=== PATIENT | female | born 1965 | race Caucasian/White ===

== ENCOUNTER → 2023-05-24 | Outpatient (CLI) | payer OTHER, SELFPAY ==
--- OUTSIDE RECORDS SUMMARY | 2023-05-24 20:21 | XMS RPT_ITS | CCD ---
Author Name Unknown Address [address] [place] [address] Organization [facility] Care Team Providers Care Nautical Instrument Mechanic Name Role Phone THEE GIORDANO. Unavailable Unavailable THEE GIORDANO Unavailable Unavailable THEE GIORDANO Unavailable Unavailable THEE GIORDANO DO Primary Care Physician Prince Monsivais Attending Unavailable Thee Giordano Primary Care Unavailable PROVIDER, UNKNOWN Referring Unavailable Thee Giordano Primary Care Unavailable PROVIDER, UNKNOWN Referring Unavailable Prince Monsivais Attending Unavailable Unavailable Primary Care Provider Unavailabl e THEE GIORDNAO DO Primary Care Unavailable THEE GIORDANO DO Attending Unavailable THEE GIORDANO DO Primary Care Unavailable THEE GIORDANO DO Attending Unavailable EL MAGUIRE Attending Unavailable THEE GIORDANO DO Primary Care Unavailable THEE GIORDANO DO Primary Care Unavailable THEE GIORDANO DO Attending Unavailable Medications Current Medications Medication Drug Class(es) Dates Sig (Normalized) Sig (Original) acetaminophen 500 mg oral tablet (2 sources) Start: 12-02-2021 End: 12-12-2021 take 1 tablet by mouth four times daily as needed for pain acetaminophen (TYLENOL) 500 MG tablet Take 1 tablet by mouth 4 times daily as needed for Pain 40 tablet 0 12/02/2021 12/12/2021 Active Completed/Discontinued Medications Medication Drug Class(es) Dates Sig (Normalized) Sig (Original) [id number] 200 actuat albuterol 0.09 mg/actuat metered dose inhaler (3 sources) beta2-Adrenergic Agonist Start: 02-16-2021 End: 03-18-2021 take 2 puff(s) by inhalation every four hours as needed for wheezing ProAir HFA MDI (90 mcg/inh) inhalation aerosol 2 puff(s), Inhalation, q4h, PRN as needed for wheezing, # 8 gram(s), 0 Refill(s), Pharmacy: [facility] 157.5, cm, 02/16/21 14:56:00 EST, Height, kg, 02/16/21 14:56:00 EST, Dosing Weight Start Date: 02/16/21 Stop Date: 03/18/21 Status: Ordered Problems Active Problems Problem Classification Problem Date Documented Date Episodic/Chronic Anxiety disorders (9 sources) Generalized anxiety disorder; Translations: [Generalized anxiety disorder] Onset: 12-26-2020 05-07-2020 Chronic Bacterial infection; unspecified site (1 source) Bacteremia; Translations: [Bacteremia] Onset: 12-30-2020 Episodic Cancer of uterus (5 sources) Malignant neoplasm of endometrium; 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 ] Onset: 12-02-2021 Chronic Diabetes mellitus with complications (3 sources) Hyperglycemia due to type 2 diabetes mellitus; Translations: [Type 2 diabetes mellitus with hyperglycemia] Onset: 12-26-2020 Chronic Diabetes mellitus without complication (10 sources) Type 2 diabetes mellitus; Translations: [Type 2 diabetes mellitus without complications] Onset: 12-02-2021 08-28-2020 Chronic Disorders of lipid metabolism (5 sources) Mixed hyperlipidemia 03-04-2021 Chronic Essential hypertension (11 sources) Hypertensive disorder; Translations: [Essential hypertension] Onset: 12-26-2020 08-28-2020 Chronic Fluid and electrolyte disorders (2 sources) Hypo-osmolality and or hyponatremia; Translations: [Hypo-osmolality and hyponatremia] Onset: 12-26-2020 Episodic Heart valve disorders (9 sources) Mitral valve prolapse; Translations: [Mitral valve disorder] Onset: 12-26-2020 05-07-2020 Chronic Malaise and fatigue (8 sources) Fatigue 12-13-2019 Episodic Other aftercare (2 sources) 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; Translations: [prison (current) use of oral hypoglycemic drugs] Onset: 12-02-2021 Episodic Other female genital disorders (1 source) Abnormal uterine bleeding 11-08-2021 Chronic Other inflammatory condition of skin (8 sources) Psoriasis 07-16-2018 Chronic Other nervous system disorders (2 sources) Postoperative pain ; Translations: [Other acute postprocedural pain] Onset: 12-02-2021 Episodic Other nutritional; endocrine; and metabolic disorders (8 sources) Obese class II 05-07-2020 Chronic Other nutritional; endocrine; and metabolic disorders (1 source) Obesity; Translations: [Obesity, unspecified] Onset: 12-26-2020 Chronic Other upper respiratory disease (8 sources) Allergic rhinitis 02-15-2019 Chronic Pneumonia (except that caused by tuberculosis or sexually transmitted disease) (6 sources) Pneumonia (except that caused by tuberculosis or sexually transmitted disease) 01-05-2021 Respiratory failure; insufficiency; arrest (adult) (6 sources) Dependence on supplemental oxygen 01-05-2021 Chronic Sprains and strains (1 source) Strain of neck muscle 03-24-2022 Episodic Thyroid disorders (10 sources) Hypothyroidism; Translations: [Hypothyroidism, unspecified] Onset: 10-06-2022 08-28-2020 Chronic Unclassified (1 source) Unknown / UNK(Unknown) Onset: 09-20-2016 Unclassified (14 sources) Patient encounter status 10-17-2019 Unclassified (1 source) Cough, unspecified; Translations: [Cough, unspecified] Onset: 03-10-2023 Past or Other Problems Problem Classification Problem Date Documented Da te Episodic/Chronic Immunizations and screening for infectious disease (2 sources) Encounter for screening for other viral diseases; Translations: [Encounter for screening for other viral diseases] Onset: 10-06-2022 Episodic Unclassified (1 source) SCREENING Onset: 09-20-2016 Unclassified (1 source) Cough, unspecified; Translations: [Cough, unspecified] Onset: 03-10-2023 Viral infection (2 sources) Disease caused by 2019-nCoV; Translations: [COVID-19] Onset: 12-26-2020 Results Test Name Value Interpretation Reference Range Facil ity Vital Signs Date Time Vital Sign Value Performing Clinician Faci lity 12-02-2021 15:15-0400 Diastolic blood pressure 87 mm[Hg] Prince Monsivais MD Work Phone: [facility] 12-02-2021 15:15-0400 Heart rate 72 /min Prince Monsivais MD Work Phone: [facility] 12-02-2021 15:15-0400 Respiratory rate 17 /min Prince Monsivais MD Work Phone: [facility] 12-02-2021 15:15-0400 SaO2% (BldA) [Mass fraction] 93 % Prince Monsivais MD Work Phone: [facility] 12-02-2021 15:15-0400 Systolic blood pressure 152 mm[Hg] Prince Monsivais MD Work Phone: [facility] 12-02-2021 13:34-0400 Body temperature 97 [degF] Prince Monsivais MD Work Phone: [facility] 12-02-2021 08:38-0400 Body height 157.5 cm Prince Monsivais MD Work Phone: [facility] 12-02-2021 08:38-0400 Body mass index (BMI) [Ratio] 36.03 kg/m2 Prince Monsivais MD Work Phone: [facility] 12-02-2021 08:38-0400 Body weight 89.36 kg Prince Monsivais MD Work Phone: [facility] 11-29-2021 09:10-0400 Body height 157.5 cm Prince Monsivais MD Work Phone: [facility] 11-29-2021 09:10-0400 Body mass index (BMI) [Ratio] 36.03 kg/m2 Prince Monsivais MD Work Phone: [facility] 11-29-2021 09:10-0400 Body weight 89.36 kg Prince Monsivais MD Work Phone: [facility] 10-29-2021 07:58-0400 Body height 157.5 cm EL MAGUIRE MD [facility] 10-29-2021 07:58-0400 Body weight 89.5 kg EL MAGUIRE MD [facility] 10-29-2021 07:58-0400 Body weight 36.08 kg/m2 EL MAGUIRE MD [facility] 10-29-2021 07:58-0400 diastolic 70 mm[Hg] EL MAGUIRE MD [facility] 10-29-2021 07:58-0400 Heart rate 70 /min EL MAGUIRE MD [facility] 10-29-2021 07:58-0400 systolic 110 mm[Hg] EL MAGUIRE MD [facility] 02-18-2021 08:51-0500 Body height 88 cm SERGIO AALIYAHKA DO [facility] 02-18-2021 08:51-0500 Body temperature 98.24 [degF] SERGIO DURESKA DO [facility] 02-18-2021 08:51-0500 Diastolic blood pressure 81 mm[Hg] SERGIO MATAESKA DO [facility] 02-18-2021 08:51-0500 Heart rate 75 /min SERGIO DURESKA DO [facility] 02-18-2021 08:51-0500 Respiratory rate 16 /min SERGIO ESPERANZAESKA DO [facility] 02-18-2021 08:51-0500 Systolic blood pressure 128 mm[Hg] SERGIO DURESKA DO [facility] 12-31-2020 11:09-0400 Body temperature 97.88 [degF] AUDI METZ APRN-MESS ATTENDANT [facility] 12-31-2020 11:09-0400 Diastolic blood pressure 64 mm[Hg] AUDI RIZZARDI HEAD OF QUALITY-MESS ATTENDANT [facility] 12-31-2020 11:09-0400 Heart rate 64 /min AUDI RIZZARDI HEAD OF QUALITY-MESS ATTENDANT [facility] 12-31-2020 11:09-0400 Mean blood pressure 85 mm[Hg] AUDI RIZZARDI HEAD OF QUALITY-MESS ATTENDANT [facility] 12-31-2020 11:09-0400 Reason For Taking VItal Signs AUDI RIZZARDI HEAD OF QUALITY-MESS ATTENDANT [facility] 12-31-2020 11:09-0400 Respiratory rate 20 /min AUDI RIZZARDI HEAD OF QUALITY-MESS ATTENDANT [facility] 12-31-2020 11:09-0400 Systolic blood pressure 127 mm[Hg] AUDI RIZZARDI HEAD OF QUALITY-MESS ATTENDANT [facility] 12-31-2020 08:58-0400 Heart rate 72 /min AUDI RIZZARDI HEAD OF QUALITY-MESS ATTENDANT [facility] 12-31-2020 08:58-0400 Respiratory rate 20 /min AUDI RIZZARDI HEAD OF QUALITY-MESS ATTENDANT [facility] 12-31-2020 08:56-0400 Heart rate 76 /min AUDI RIZZARDI HEAD OF QUALITY-MESS ATTENDANT [facility] 12-31-2020 08:56-0400 Respiratory rate 20 /min AUDI RIZZARDI HEAD OF QUALITY-MESS ATTENDANT [facility] 12-31-2020 08:19-0400 Body temperature 97.52 [degF] AUDI RIZZARDI HEAD OF QUALITY-MESS ATTENDANT [facility] 12-31-2020 08:19-0400 Diastolic blood pressure 69 mm[Hg] AUDI RIZZARDI HEAD OF QUALITY-MESS ATTENDANT [facility] 12-31-2020 08:19-0400 Reason For Taking VItal Signs AUDI RIZZARDI HEAD OF QUALITY-MESS ATTENDANT [facility] 12-31-2020 08:19-0400 Systolic blood pressure 127 mm[Hg] AUDI RIZZARDI HEAD OF QUALITY-MESS ATTENDANT [facility] 12-31-2020 05:43-0400 Body temperature 97.7 [degF] AUDI RIZZARDI HEAD OF QUALITY-MESS ATTENDANT [facility] 12-31-2020 05:43-0400 Diastolic blood pressure 73 mm[Hg] AUDI RIZZARDI HEAD OF QUALITY-MESS ATTENDANT [facility] 12-31-2020 05:43-0400 Systolic blood pressure 129 mm[Hg] AUDI RIZZARDI HEAD OF QUALITY-MESS ATTENDANT [facility] 12-30-2020 09:18-0400 Heart rate 68 /min AUDI RIZZARDI HEAD OF QUALITY-MESS ATTENDANT [facility] 12-30-2020 09:18-0400 Mean blood pressure 85 mm[Hg] AUDI RIZZARDI HEAD OF QUALITY-MESS ATTENDANT [facility] 12-30-2020 09:18-0400 Reason For Taking VItal Signs AUDI RIZZARDI HEAD OF QUALITY-MESS ATTENDANT [facility] 12-30-2020 08:50-0400 Heart rate 66 /min AUDI RIZZARDI HEAD OF QUALITY-MESS ATTENDANT [facility] 12-30-2020 05:03-0400 Heart rate 69 /min AUDI RIZZARDI HEAD OF QUALITY-MESS ATTENDANT [facility] 12-29-2020 16:15-0400 Mean blood pressure 80 mm[Hg] AUDI RIZZARDI HEAD OF QUALITY-MESS ATTENDANT [facility] 12-28-2020 16:48-0400 Heart rate 78 /min AUDI RIZZARDI HEAD OF QUALITY-MESS ATTENDANT [facility] 12-28-2020 07:52-0400 Heart rate 72 /min AUDI RIZZARDI HEAD OF QUALITY-MESS ATTENDANT [facility] 12-26-2020 21:32-0400 Body height 157.5 cm AUDI RIZZARDI HEAD OF QUALITY-MESS ATTENDANT [facility] 12-26-2020 21:32-0400 Body weight 89.2 kg AUDI METZ HEAD OF QUALITY-MESS ATTENDANT [facility] 12-26-2020 21:32-0400 Body weight 35.96 kg/m2 AUDI METZ HEAD OF QUALITY-MESS ATTENDANT [facility] 12-26-2020 17:25-0400 SaO2% (BldA) [Mass fraction] 91 % AUDI METZ HEAD OF QUALITY-MESS ATTENDANT AO Blood Gas SS Encounters Encounter Date Encounter Type Care Provider Facility Start: 03-10-2023 End: 03-15-2023 ambulatory THEE GIORDANO DO Facility:A Start: 10-06-2022 End: 10-11-2022 ambulatory THEE GIORDANO DO Facility:A Start: 06-30-2022 End: 07-01-2022 ambulatory EL MAGUIRE Facility:B Start: 06-30-2022 End: 06-30-2022 Patient encounter procedure EL MAGUIRE MD [facility] Start: 03-24-2022 End: 03-29-2022 ambulatory THEE GIORDANO DO Facility:A Start: 12-02-2021 End: 12-02-2021 ambulatory [facility] Start: 12-02-2021 End: 12-02-2021 Subsequent hospital visit by physician Prince Monsivais MD Work Phone: [facility] General Surgery Procedures Date Procedure Procedure Detail Performing Clinician Start: 12-02-2021 OPERATIVE REPORT Physician Generic Start: 12-02-2021 H/O: hysterectomy S/P laparoscopic hysterectomy Prince Monsivais MD Work Phone: Start: 12-02-2021 Urine test visual color cmprsn meths Edy Blankenship MD Work Phone: Start: 12-02-2021 Gluc bld gluc mntr dev cleared fda spec home use Prince Monsivais MD Work Phone: Start: 12-02-2021 Gluc bld gluc mntr dev cleared fda spec home use Prince Monsivais MD Work Phone: Start: 12-02-2021 Antibody screen Prince Monsivais MD Work Phone: Start: 12-02-2021 Ecg routine ecg w/least 12 lds w/i&r Edy Blankenship MD Work Phone: Start: 12-02-2021 End: 12-02-2021 Basic metabolic panel calcium total Edy Blankenship MD Work Phone: Start: 12-02-2021 Blood typing serologic abo Edy Blankenship MD Work Phone: Start: 12-02-2021 Hysterectomy EL MAGUIRE MD Start: 12-27-2020 Microscopic examination of blood, culture AUDI METZ HEAD OF QUALITY-MESS ATTENDANT section THEE MALONE DO Plan of Treatment Date Care Activity Detail Author Start: 12-17-2021 End: 12-17-2021 Patient encounter procedure 12/17/2021 Office Visit Gynecologic Oncology Prince Monsivais MD [address] [place] [address] [facility] [place] ENGINEER FISHING VESSEL Oncology Start: 12-02-2021 Subsequent hospital visit by physician 12/02/2021 Hospital Encounter General Surgery Prince Monsivais MD [address] [place], [place] [id number] [facility] General Surgery Start: 11-11-2021 Influenza vaccination Flu vaccine (# 1) [facility] Start: 2016 Screening for malign ant neoplasm of breast Breast cancer screen [facility] Start: 2016 Shingles vaccine (1 of 2) Shingles vaccine (1 of 2) [facility] Start: 05-14-2011 Screening for malign ant neoplasm of colon [facility] Start: 2006 Lipid panel Lipids [facility] Start: 2001 Diabetes screen Diabetes screen [facility] Start: 1996 Screening for malign ant neoplasm of cervix [facility] Start: 05-14-1987 Screening for malign ant neoplasm of cervix Pap smear [facility] Start: 1985 DTaP/Tdap/Td vaccine (1 - Tdap) DTaP/Tdap/Td vaccine (1 - Tdap) [facility] Start: 1984 Hepatitis C screening Hepatitis C sc reen [facility] Start: 1981 HIV screening HIV screen [facility] Start: 1978 Depression Screen Depression Screen [facility] Start: 1966 COVID-19 Vaccine (#1) COVID-19 Vacci ne (#1) [facility] EKG 12 Lead EKG 12 Lead ECG STAT 12/02/2021 8:58 AM EDT [facility] Work Phone: Glucose [Mass/volume ] in Serum or Plasma [facility] Work Phone: Payers Date Payer Category Payer Private Health Insurance [id number] 2015 Private Health Insurance [id number] 1966 Unknown [id number] 1966 Unknown [id number] [id number] 1966 Unknown [id number] 1966 Unknown [id number] 1966 Unknown [id number] [id number] 1966 Unknown [id number] Private Health Insurance Social History Date Type Detail Facility Start: 06-22-2018 End: 11-23-2021 Never smoked tobacco (finding) [facility] Sex Assigned At [facility] Start: 11-23-2021 Tobacco use and exposure Smokeless tobacco non-user [facility] Work Phone: Start: 11-29-2021 End: 12-02-2021 Alcohol intake Lifetime non-drinker (finding) [facility] Work Phone: Start: 1965 Sex Assigned At Not on file [facility] [employer] Work Phone: Start: 11-19-2021 End: 12-02-2021 Exposure to SARS-CoV-2 (event) Not sure [facility] Work Phone: Medical Equipment Procedure Code Equipment Code Equipment Origin al Text Equipment Identifier Dates See Instructions , generic lancet use 1 daily as directed., # 50 EA, 11 Refill(s), Pharmacy: [facility], cm, 05/07/20 9:26:00 EST, Height, 93.18, kg, 05/07/20 9:26:00 EST, Dosing Weight Start: 05-07-2020 See Instructions , Generic glucose test strips use one strip daily as directed DX E11.9., # 50 EA, 11 Refill(s), Pharmacy: [facility] 157, cm, 05/07/20 9:26:00 EST, Height, 93.18, kg, 05/07/20 9:26:00 EST, Dosing Weight Start: 05-07-2020 See Instructions , generic lancet use 1 daily as directed., # 50 EA, 11 Refill(s), Pharmacy: [facility] 157, cm, 05/07/20 9:26:00 EST, Height, 93.18, kg, 05/07/20 9:26:00 EST, Dosing Weight Start: 05-07-2020 See Instructions , Generic glucose test strips use one strip daily as directed DX E11.9., # 50 EA, 11 Refill(s), Pharmacy: [facility] 157, cm, 05/07/20 9:26:00 EST, Height, 93.18, kg, 05/07/20 9:26:00 EST, Dosing Weight Start: 05-07-2020 See Instructions , generic lancet use 1 daily as directed., # 50 EA, 11 Refill(s), Pharmacy: [facility] 157, cm, 05/07/20 9:26:00 EST, Height, 93.18, kg, 05/07/20 9:26:00 EST, Dosing Weight Start: 05-07-2020 See Instructions , Generic glucose test strips use one strip daily as directed DX E11.9., # 50 EA, 11 Refill(s), Pharmacy: [facility] 157, cm, 05/07/20 9:26:00 EST, Height, 93.18, kg, 05/07/20 9:26:00 EST, Dosing Weight Start: 05-07-2020 See Instructions , generic lancet use 1 daily as directed., # 50 EA, 11 Refill(s), Pharmacy: [facility] 157, cm, 05/07/20 9:26:00 EST, Height, 93.18, kg, 05/07/20 9:26:00 EST, Dosing Weight Start: 05-07-2020 See Instructions , Generic glucose test strips use one strip daily as directed DX E11.9., # 50 EA, 11 Refill(s), Pharmacy: [facility] 157, cm, 05/07/20 9:26:00 EST, Height, 93.18, kg, 05/07/20 9:26:00 EST, Dosing Weight Start: 05-07-2020 See Instructions , generic lancet use 1 daily as directed., # 50 EA, 11 Refill(s), Pharmacy: [facility] 157, cm, 05/07/20 9:26:00 EST, Height, 93.18, kg, 05/07/20 9:26:00 EST, Dosing Weight Start: 05-07-2020 See Instructions , Generic glucose test strips use one strip daily as directed DX E11.9., # 50 EA, 11 Refill(s), Pharmacy: [facility] 157, cm, 05/07/20 9:26:00 EST, Height, 93.18, kg, 05/07/20 9:26:00 EST, Dosing Weight Start: 05-07-2020 Functional Status Date Assessment Result Facility 10-29-2021 Functional Status Sensory Deficits None A [facility] Clinical Notes 12-26-2020 to 09-16-2021 Note Date & Type Note Facility 09-16-2021 Note Slides reviewed. [facility] 09-16-2021 Note Slides reviewed. [facility] 09-16-2021 Note Slides reviewed. [facility] 09-16-2021 Note Slides reviewed. [facility] 09-15-2021 Note Slides reviewed. [facility] 09-15-2021 Note Slides reviewed. [facility] 09-15-2021 Note Slides reviewed. [facility] 09-07-2021 Note ORIGINAL EXAMINATION: TRANSVAGINAL PELVIC ULTRASOUND09/07/2021 7:48 am Ultrasound pelvis, transabdominal and transvaginal COMPARISON: None HISTORY: ORDERING SYSTEM PROVIDED HISTORY: Reason for Exam: Abnormal uterine bleeding, FINDINGS: The uterus is 10.9 x 5.1 x 6.7 cm. No discrete myometrial mass is seen. The endometrium is markedly thickened, poorly defined and heterogeneous 3 cm in double wall thickness. There is no increased blood flow within it.. Right ovary: Not visualized Left ovary: Not visualized No adnexal mass or pelvic free fluid is seen. IMPRESSION: The ovaries are not visualized due to bowel gas artifacts. Markedly thickened and heterogeneous endometrium. Further evaluation is needed as clinically warranted. Interpreted by: Norman Minor MD Preliminary Report By: Norman Minor MD Electronically signed By Norman Minor MD Dictated Date: 09/07/2021 12:29:10 PM Prelim Date: 09/07/2021 12:35:14 PM Sign Date: 09/07/2021 12:35:14 PM Ordering Provider: [facility] 09-07-2021 Note ORIGINAL EXAMINATION: TRANSVAGINAL PELVIC ULTRASOUND09/07/2021 7:48 am Ultrasound pelvis, transabdominal and transvaginal COMPARISON: None HISTORY: ORDERING SYSTEM PROVIDED HISTORY: Reason for Exam: Abnormal uterine bleeding, FINDINGS: The uterus is 10.9 x 5.1 x 6.7 cm. No discrete myometrial mass is seen. The endometrium is markedly thickened, poorly defined and heterogeneous 3 cm in double wall thickness. There is no increased blood flow within it.. Right ovary: Not visualized Left ovary: Not visualized No adnexal mass or pelvic free fluid is seen. IMPRESSION: The ovaries are not visualized due to bowel gas artifacts. Markedly thickened and heterogeneous endometrium. Further evaluation is needed as clinically warranted. Interpreted by: Norman Minor MD Preliminary Report By: Norman Minor MD Electronically signed By Norman Minor MD Dictated Date: 09/07/2021 12:29:10 PM Prelim Date: 09/07/2021 12:35:14 PM Sign Date: 09/07/2021 12:35:14 PM Ordering Provider: [facility] 02-18-2021 Hospital Discharg e instructions Patient Education 02/18/2021 09:48:37 Fracture, Finger, Closed Finger Fracture, Closed You have a broken finger (fracture). This causes local pain, swelling, and bruising. This injury usually takes about 4 to 6 weeks to heal, but can take longer in some cases. Finger injuries are often treated with a splint or cast, or by taping the injured finger to the next one (hodan taping). This protects the injured finger and holds the bone in position while it heals. More serious fractures may need surgery. If the fingernail has been severely injured, it will probably fall off in 1 to 2 weeks. A new fingernail will usually start to grow back within a month. Home care Follow these guidelines when caring for yourself at home: Keep your hand elevated to reduce pain and swelling. When sitting or lying down keep your arm above the level of your heart. You can do this by placing your arm on a pillow that rests on your chest or on a pillow at your side. This is most important during the first 2 days (48 hours) after the injury. Put an ice pack on the injured area. Do this for 20 minutes every 1 to 2 hours the first day for pain relief. You can make an ice pack by wrapping a plastic bag of ice cubes in a thin towel. As the ice melts, be careful that the cast or splint doesn t get wet. Continue using the ice pack 3 to 4 times a day until the pain and swelling go away. Keep the cast or splint completely dry at all times. Bathe with your cast or splint out of the water. Protect it with a large plastic bag, rubber-banded at the top end. If a fiberglass cast or splint gets wet, you can dry it with a vice chair. If hodan tape was put on and it becomes wet or dirty, change it. You may replace it with paper, plastic, or cloth tape. Cloth tape and paper tapes must be kept dry. Keep the hodan tape in place for at least 4 weeks. You may use acetaminophen or ibuprofen to control pain, unless another pain medicine was prescribed. If you have chronic liver or kidney disease, talk with your healthcare provider before using these medicines. Also talk with your provider if you ve had a stomach ulcer or gastrointestinal bleeding. Don t put creams or objects under the cast if you have itching. Follow-up care Follow up with your healthcare provider, or as advised. This is to make sure the bone is healing the way it should. X-rays may be taken. You will be told of any new findings that may affect your care. When to seek medical advice Call your healthcare provider right away if any of these occur: The plaster cast or splint becomes wet or soft The cast or splint cracks The fiberglass cast or splint stays wet for more than 24 hours Pain or swelling gets worse Redness, warmth, swelling, drainage from the wound, or foul odor from a cast or splint Finger becomes more cold, blue, numb, or tingly You can t move your finger The skin around the cast or splint becomes red Fever of 100.4 F (38 C) or higher, or as directed by your healthcare provider [phone] [employer]. [address] [place] [address], [place] [address]. All rights reserved. This information is not intended as a substitute for professional medical care. Always follow your healthcare professional's instructions. Follow Up Care 02/18/2021 08:46:10 With:JERMAN ESCOBAR DO, Orthopedic, Orthopedic Address: [address] [place] [address], [address] [place] [address]- [phone] When:2-4 days With:THEE GIORDANO DO Address: [address] [place] [address] [place] [address]- [phone] When:2-4 days [facility] 12-31-2020 Hospital Discharg e instructions Patient Education 12/31/2020 10:31:16 Diabetes Mellitus and Nutrition, Adult Diabetes Mellitus and Nutrition, Adult When you have diabetes (diabetes mellitus), it is very important to have healthy eating habits because your blood sugar (glucose) levels are greatly affected by what you eat and drink. Eating healthy foods in the appropriate amounts, at about the same times every day, can help you: Control your blood glucose. Lower your risk of heart disease. Improve your blood pressure. Reach or maintain a healthy weight. Every person with diabetes is different, and each person has different needs for a meal plan. Your health care provider may recommend that you work with a diet and child support specialist (dietitian) to make a meal plan that is best for you. Your meal plan may vary depending on factors such as: The calories you need. The medicines you take. Your weight. Your blood glucose, blood pressure, and cholesterol levels. Your activity level. Other health conditions you have, such as heart or kidney disease. How do carbohydrates affect me? Carbohydrates, also called carbs, affect your blood glucose level more than any other type of food. Eating carbs naturally raises the amount of glucose in your blood. Carb counting is a method for keeping track of how many carbs you eat. Counting carbs is important to keep your blood glucose at a healthy level, especially if you use insulin or take certain oral diabetes medicines. It is important to know how many carbs you can safely have in each meal. This is different for every person. Your dietitian can help you calculate how many carbs you should have at each meal and for each snack. Foods that contain carbs include: Bread, cereal, rice, pasta, and crackers. Potatoes and corn. Peas, beans, and lentils. Milk and yogurt. Fruit and juice. Desserts, such as cakes, cookies, ice cream, and candy. How does alcohol affect me? Alcohol can cause a sudden decrease in blood glucose (hypoglycemia), especially if you use insulin or take certain oral diabetes medicines. Hypoglycemia can be a life-threatening condition. Symptoms of hypoglycemia (sleepiness, dizziness, and confusion) are similar to symptoms of having too much alcohol. If your health care provider says that alcohol is safe for you, follow these guidelines: Limit alcohol intake to no more than 1 drink per day for non women and 2 drinks per day for men. One drink equals 12 oz of beer, 5 oz of wine, or 1 oz of hard liquor. Do not drink on an empty stomach. Keep yourself hydrated with water, diet soda, or unsweetened iced tea. Keep in mind that regular soda, juice, and other mixers may contain a lot of sugar and must be counted as carbs. What are tips for following this plan? Reading food labels Start by checking the serving size on the Nutrition Facts label of packaged foods and drinks. The amount of calories, carbs, fats, and other nutrients listed on the label is based on one serving of the item. Many items contain more than one serving per package. Check the total grams (g) of carbs in one serving. You can calculate the number of servings of carbs in one serving by dividing the total carbs by 15. For example, if a food has 30 g of total carbs, it would be equal to 2 servings of carbs. Check the number of grams (g) of saturated and trans fats in one serving. Choose foods that have low or no amount of these fats. Check the number of milligrams (mg) of salt (sodium) in one serving. Most people should limit total sodium intake to less than 2,300 mg per day. Always check the nutrition information of foods labeled as low-fat or nonfat . These foods may be higher in added sugar or refined carbs and should be avoided. Talk to your dietitian to identify your daily goals for nutrients listed on the label. Shopping Avoid buying canned, premade, or processed foods. These foods tend to be high in fat, sodium, and added sugar. Shop around the outside edge of the grocery store. This includes fresh fruits and vegetables, bulk grains, fresh meats, and fresh dairy. Cooking Use low-heat cooking methods, such as baking, instead of high-heat cooking methods like deep frying. Cook using healthy oils, such as olive, canola, or sunflower oil. Avoid cooking with butter, cream, or high-fat meats. Meal planning Eat meals and snacks regularly, preferably at the same times every day. Avoid going long periods of time without eating. Eat foods high in fiber, such as fresh fruits, vegetables, beans, and whole grains. Talk to your dietitian about how many servings of carbs you can eat at each meal. Eat 4 6 ounces (oz) of lean protein each day, such as lean meat, chicken, fish, eggs, or tofu. One oz of lean protein is equal to: ?1 oz of meat, chicken, or fish. ?1 egg. ? cup of tofu. Eat some foods each day that contain healthy fats, such as avocado, nuts, seeds, and fish. Lifestyle Check your blood glucose regularly. Exercise regularly as told by your health care provider. This may include: ?150 minutes of moderate-intensity or vigorous-intensity exercise each week. This could be brisk walking, biking, or water aerobics. ?Stretching and doing strength exercises, such as yoga or weightlifting, at least 2 times a week. Take medicines as told by your health care provider. Do not use any products that contain nicotine or tobacco, such as cigarettes and e-cigarettes. If you need help quitting, ask your health care provider. Work with a counselor or clinical systems educator to identify strategies to manage stress and any emotional and social challenges. Questions to ask a health care provider Do I need to meet with a clinical systems educator? Do I need to meet with a dietitian? What number can I call if I have questions? When are the best times to check my blood glucose? Where to find more information: [place] [employer]: diabetes.org Academy of Nutrition and Dietetics: www.eatright.org National [place] of Diabetes and Digestive and Kidney Diseases (NIH): www.niddk.nih.gov Summary A healthy meal plan will help you control your blood glucose and maintain a healthy lifestyle. Working with a diet and child support specialist (dietitian) can help you make a meal plan that is best for you. Keep in mind that carbohydrates (carbs) and alcohol have immediate effects on your blood glucose levels. It is important to count carbs and to use alcohol carefully. This information is not intended to replace advice given to you by your health care provider. Make sure you discuss any questions you have with your health care provider. Document Released: 11/24/2005 Document Revised: 02/09/2018 Document Reviewed: 04/03/2017 [employer] Patient Education 2020 [place] 12/31/2020 10:31:12 Diabetes and Exercise Diabetes and Exercise Exercising regularly is important. It is not just about losing weight. It has many health benefits, such as: Improving your overall fitness, flexibility, and endurance. Increasing your bone density. Helping with weight control. Decreasing your body fat. Increasing your muscle strength. Reducing stress and tension. Improving your overall health. People with diabetes who exercise gain additional benefits because exercise: Reduces appetite. Improves the body's use of blood sugar (glucose). Helps lower or control blood glucose. Decreases blood pressure. Helps control blood lipids (such as cholesterol and triglycerides). Improves the body's use of the hormone insulin by: ? Increasing the body's insulin sensitivity. ? Reducing the body's insulin needs. Decreases the risk for heart disease because exercising: ? Lowers cholesterol and triglycerides levels. ? Increases the levels of good cholesterol (such as high-density lipoproteins [HDL]) in the body. ? Lowers blood glucose levels. YOUR ACTIVITY PLAN Choose an activity that you enjoy and set realistic goals. Your health care provider or clinical systems educator can help you make an activity plan that works for you. You can break activities into 2 or 3 sessions throughout the day. Doing so is as good as one long session. Exercise ideas include: Taking the dog for a walk. Taking the stairs instead of the elevator. Dancing to your favorite song. Doing your favorite exercise with a friend. RECOMMENDATIONS FOR EXERCISING WITH TYPE 1 OR TYPE 2 DIABETES Check your blood glucose before exercising. If blood glucose levels are greater than 240 mg/dL, check for urine ketones. Do not exercise if ketones are present. Avoid injecting insulin into areas of the body that are going to be exercised. For example, avoid injecting insulin into: ? The arms when playing tennis. ? The legs when jogging. Keep a record of: ? Food intake before and after you exercise. ? Expected peak times of insulin action. ? Blood glucose levels before and after you exercise. ? The type and amount of exercise you have done. Review your records with your health care provider. Your health care provider will help you to develop guidelines for adjusting food intake and insulin amounts before and after exercising. If you take insulin or oral hypoglycemic agents, watch for signs and symptoms of hypoglycemia. They include: ? Dizziness. ? Shaking. ? Sweating. ? Chills. ? Confusion. Drink plenty of water while you exercise to prevent dehydration or heat stroke. Body water is lost during exercise and must be replaced. Talk to your health care provider before starting an exercise program to make sure it is safe for you. Remember, almost any type of activity is better than none. Document Released: 05/19/2004 Document Revised: 10/30/2013 Document Reviewed: 08/06/2013 [employer] Patient Information 2015 [employer]. This information is not intended to replace advice given to you by your health care provider. Make sure you discuss any questions you have with your health care provider. 12/31/2020 10:31:06 Bacteremia, Adult Bacteremia, Adult Bacteremia is the presence of bacteria in the blood. When bacteria enter the bloodstream, they can cause a life-threatening reaction called sepsis. Sepsis is a medical emergency. What are the causes? This condition is caused by bacteria that get into the blood. Bacteria can enter the blood from an infection, including: A skin infection or injury, such as a burn or a cut. A lung infection (pneumonia). An infection in the stomach or intestines. An infection in the bladder or urinary system (urinary tract infection). A bacterial infection in another part of the body that spreads to the blood. Bacteria can also enter the blood during a dental or medical procedure, from bleeding gums, or through use of an unclean needle. What increases the risk? This condition is more likely to develop in children, older adults, and people who have: A long-term (chronic) disease or condition like diabetes or chronic kidney failure. An artificial joint or heart valve, or heart valve disease. A tube inserted to treat a medical condition, such as a urinary catheter or IV. A weak disease-fighting system (immune system). Injected illegal drugs. Been hospitalized for more than 10 days in a row. What are the signs or symptoms? Symptoms of this condition include: Fever and chills. Fast heartbeat and shortness of breath. Dizziness, weakness, and low blood pressure. Confusion or anxiety. Pain in the abdomen, nausea, vomiting, and diarrhea. Bacteremia that has spread to other parts of the body may cause symptoms in those areas. In some cases, there are no symptoms. How is this diagnosed? This condition may be diagnosed with a physical exam and tests, such as: Blood tests to check for bacteria (cultures) or other signs of infection. Tests of any tubes that you have had inserted. These tests check for a source of infection. Urine tests to check for bacteria in the urine. Imaging tests, such as an X-ray, a CT scan, an MRI, or a heart ultrasound. These check for a source of infection in other parts of your body, such as your lungs, heart valves, or joints. How is this treated? This condition is usually treated in the hospital. If you are treated at home, you may need to return to the hospital for medicines, blood tests, and evaluation. Treatment may include: Antibiotic medicines. These may be given by mouth or directly into your blood through an IV. You may need antibiotics for several weeks. At first, you may be given an antibiotic to kill most types of blood bacteria. If tests show that a certain kind of bacteria is causing the problem, you may be given a different antibiotic. IV fluids. Removing any catheter or device that could be a source of infection. Blood pressure and breathing support, if needed. Surgery to control the source or the spread of infection, such as surgery to remove an implanted device, abscess, or infected tissue. Follow these instructions at home: Medicines Take yeww-dtb-eqfuwsd and prescription medicines only as told by your health care provider. If you were prescribed an antibiotic medicine, take it as told by your health care provider. Do not stop taking the antibiotic even if you start to feel better. General instructions Rest as needed. Ask your health care provider when you may return to normal activities. Drink enough fluid to keep your urine pale yellow. Do not use any products that contain nicotine or tobacco, such as cigarettes, e-cigarettes, and chewing tobacco. If you need help quitting, ask your health care provider. Keep all follow-up visits as told by your health care provider. This is important. How is this prevented? Wash your hands regularly with soap and water. If soap and water are not available, use hand network lead. You should wash your hands: ?After using the toilet or changing a diaper. ?Before preparing, cooking, serving, or eating food. ?While caring for a sick person or while visiting someone in a hospital. ?Before and after changing bandages (dressings) over wounds. Clean any scrapes or cuts with soap and water and cover them with a clean bandage. Get vaccinations as recommended by your health care provider. Practice good oral hygiene. [place] your teeth two times a day, and floss regularly. Take good care of your skin. This includes bathing and moisturizing on a regular basis. Contact a health care provider if: Your symptoms get worse, and medicines do not help. You have severe pain. Get help right away if you have: Pain. A fever or chills. Trouble breathing. A fast heart rate. Skin that is blotchy, pale, or clammy. Confusion. Weakness. Lack of energy or unusual sleepiness. New symptoms that develop after treatment has started. These symptoms may represent a serious problem that is an emergency. Do not wait to see if the symptoms will go away. Get medical help right away. Call your local emergency services (911 in the [place] Do not drive yourself to the hospital. Summary Bacteremia is the presence of bacteria in the blood. When bacteria enter the bloodstream, they can cause a life-threatening reaction called sepsis. Bacteremia is usually treated with antibiotic medicines in the hospital. If you were prescribed an antibiotic medicine, take it as told by your health care provider. Do not stop taking the antibiotic even if you start to feel better. Get help right away if you have any new symptoms that develop after treatment has started. This information is not intended to replace advice given to you by your health care provider. Make sure you discuss any questions you have with your health care provider. Document Released: 12/11/2006 Document Revised: 07/19/2019 Document Reviewed: 07/19/2019 [employer] Patient Education 2020 [employer]. 12/31/2020 10:31:04 COVID-19: How to Protect Yourself and Others - CDC COVID-19: How to Protect Yourself and Others Know how it spreads There is currently no vaccine to prevent coronavirus disease 2019 (COVID-19). The best way to prevent illness is to avoid being exposed to this virus. The virus is thought to spread mainly from lqhinn-kl-nsrvnx. ?Between people who are in close contact with one another (within about 6 feet). ?Through respiratory droplets produced when an infected person coughs, sneezes or talks. ?These droplets can land in the mouths or noses of people who are nearby or possibly be inhaled into the lungs. ?Some recent studies have suggested that COVID-19 may be spread by people who are not showing symptoms. Everyone should Clean your hands often Wash your hands often with soap and water for at least 20 seconds especially after you have been in a public place, or after blowing your nose, coughing, or sneezing. If soap and water are not readily available, use a hand network lead that contains at least 60% alcohol. Cover all surfaces of your hands and rub them together until they feel dry. Avoid touching your eyes, nose, and mouth with unwashed hands. Avoid close contact Limit contact with others as much as possible. Avoid close contact with people who are sick. Put distance between yourself and other people. ?Remember that some people without symptoms may be able to spread virus. ?This is especially important for people who are at higher risk of getting very sick.www.cdc.gov/coronavirus/201 9-ncov/marg-mlary-rmykceupnqd/pe njpr-in-feexgf-risk.html Cover your mouth and nose with a cloth face cover when around others You could spread COVID-19 to others even if you do not feel sick. Everyone should wear a cloth face covering in public settings and when around people not living in their household, especially when social distancing is difficult to maintain. ?Cloth face coverings should not be placed on young children under age 2, anyone who has trouble breathing, or is unconscious, incapacitated or otherwise unable to remove the mask without assistance. The cloth face cover is meant to protect other people in case you are infected. Do NOT use a facemask meant for a healthcare worker. Continue to keep about 6 feet between yourself and others. The cloth face cover is not a substitute for social distancing. Cover coughs and sneezes Always cover your mouth and nose with a tissue when you cough or sneeze or use the inside of your elbow. Throw used tissues in the trash. Immediately wash your hands with soap and water for at least 20 seconds. If soap and water are not readily available, clean your hands with a hand network lead that contains at least 60% alcohol. Clean and disinfect Clean AND disinfect frequently touched surfaces daily. This includes tables, doorknobs, light switches, countertops, handles, desks, phones, keyboards, toilets, faucets, and sinks. www.cdc.gov/coronavirus/2019-nco v/fdceoua-upxakjy-tcko/disinfect jax-vbju-ktvi.html If surfaces are dirty, clean them: Use detergent or soap and water prior to disinfection. Then, use a household disinfectant. You can see a list of [facility]-registered household disinfectants here. cdc.gov/coronavirus 09/10/2019 This information is not intended to replace advice given to you by your health care provider. Make sure you discuss any questions you have with your health care provider. Document Released: 06/25/2019 Document Revised: 09/19/2019 Document Reviewed: 09/19/2019 [employer] Patient Education 2020 [employer]. 12/31/2020 10:31:03 COVID-19 COVID-19 COVID-19 is a respiratory infection that is caused by a virus called severe acute respiratory syndrome coronavirus 2 (SARS-CoV-2). The disease is also known as coronavirus disease or novel coronavirus. In some people, the virus may not cause any symptoms. In others, it may cause a serious infection. The infection can get worse quickly and can lead to complications, such as: Pneumonia, or infection of the lungs. Acute respiratory distress syndrome or ARDS. This is fluid build-up in the lungs. Acute respiratory failure. This is a condition in which there is not enough oxygen passing from the lungs to the body. Sepsis or septic shock. This is a serious bodily reaction to an infection. Blood clotting problems. Secondary infections due to bacteria or fungus. The virus that causes COVID-19 is contagious. This means that it can spread from person to person through droplets from coughs and sneezes (respiratory secretions). What are the causes? This illness is caused by a virus. You may catch the virus by: Breathing in droplets from an infected person's cough or sneeze. Touching something, like a table or a doorknob, that was exposed to the virus (contaminated) and then touching your mouth, nose, or eyes. What increases the risk? Risk for infection You are more likely to be infected with this virus if you: Live in or travel to an area with a COVID-19 outbreak. Come in contact with a sick person who recently traveled to an area with a COVID-19 outbreak. Provide care for or live with a person who is infected with COVID-19. Risk for serious illness You are more likely to become seriously ill from the virus if you: Are 65 years of age or older. Have a long-term disease that lowers your body's ability to fight infection (immunocompromised). Live in a fpc or long-term care facility. Have a long-term (chronic) disease such as: ?Chronic lung disease, including chronic obstructive pulmonary disease or asthma ?Heart disease. ?Diabetes. ?Chronic kidney disease. ?Liver disease. Are obese. What are the signs or symptoms? Symptoms of this condition can range from mild to severe. Symptoms may appear any time from 2 to 14 days after being exposed to the virus. They include: A fever. A cough. Difficulty breathing. Chills. Muscle pains. A sore throat. Loss of taste or smell. Some people may also have stomach problems, such as nausea, vomiting, or diarrhea. Other people may not have any symptoms of COVID-19. How is this diagnosed? This condition may be diagnosed based on: Your signs and symptoms, especially if: ?You live in an area with a COVID-19 outbreak. ?You recently traveled to or from an area where the virus is common. ?You provide care for or live with a person who was diagnosed with COVID-19. A physical exam. Lab tests, which may include: ?A nasal swab to take a sample of fluid from your nose. ?A throat swab to take a sample of fluid from your throat. ?A sample of mucus from your lungs (sputum). ?Blood tests. Imaging tests, which may include, X-rays, CT scan, or ultrasound. How is this treated? At present, there is no medicine to treat COVID-19. Medicines that treat other diseases are being used on a trial basis to see if they are effective against COVID-19. Your health care provider will talk with you about ways to treat your symptoms. For most people, the infection is mild and can be managed at home with rest, fluids, and hqvg-qso-uddyvoo medicines. Treatment for a serious infection usually takes places in a hospital intensive care unit (ICU). It may include one or more of the following treatments. These treatments are given until your symptoms improve. Receiving fluids and medicines through an IV. Supplemental oxygen. Extra oxygen is given through a tube in the nose, a face mask, or a pratt. Positioning you to lie on your stomach (prone position). This makes it easier for oxygen to get into the lungs. Continuous positive airway pressure (CPAP) or bi-level positive airway pressure (BPAP) machine. This treatment uses mild air pressure to keep the airways open. A tube that is connected to a motor delivers oxygen to the body. Ventilator. This treatment moves air into and out of the lungs by using a tube that is placed in your windpipe. Tracheostomy. This is a procedure to create a hole in the neck so that a breathing tube can be inserted. Extracorporeal membrane oxygenation (ECMO). This procedure gives the lungs a chance to recover by taking over the functions of the heart and lungs. It supplies oxygen to the body and removes carbon dioxide. Follow these instructions at home: Lifestyle If you are sick, stay home except to get medical care. Your health care provider will tell you how long to stay home. Call your health care provider before you go for medical care. Rest at home as told by your health care provider. Do not use any products that contain nicotine or tobacco, such as cigarettes, e-cigarettes, and chewing tobacco. If you need help quitting, ask your health care provider. Return to your normal activities as told by your health care provider. Ask your health care provider what activities are safe for you. General instructions Take pibj-vlb-eilukmn and prescription medicines only as told by your health care provider. Drink enough fluid to keep your urine pale yellow. Keep all follow-up visits as told by your health care provider. This is important. How is this prevented? There is no vaccine to help prevent COVID-19 infection. However, there are steps you can take to protect yourself and others from this virus. To protect yourself: Do not travel to areas where COVID-19 is a risk. The areas where COVID-19 is reported change often. To identify high-risk areas and travel restrictions, check the [facility] travel website: wwwnc.cdc.gov/travel/notices If you live in, or must travel to, an area where COVID-19 is a risk, take precautions to avoid infection. ?Stay away from people who are sick. ?Wash your hands often with soap and water for 20 seconds. If soap and water are not available, use an alcohol-based hand network lead. ?Avoid touching your mouth, face, eyes, or nose. ?Avoid going out in public, follow guidance from your state and local health authorities. ?If you must go out in public, wear a cloth face covering or face mask. ?Disinfect objects and surfaces that are frequently touched every day. This may include: ?Counters and tables. ?Doorknobs and light switches. ?Sinks and faucets. ?Electronics, such as phones, remote controls, keyboards, computers, and tablets. To protect others: If you have symptoms of COVID-19, take steps to prevent the virus from spreading to others. If you think you have a COVID-19 infection, contact your health care provider right away. Tell your health care team that you think you may have a COVID-19 infection. Stay home. Leave your house only to seek medical care. Do not use public transport. Do not travel while you are sick. Wash your hands often with soap and water for 20 seconds. If soap and water are not available, use alcohol-based hand network lead. Stay away from other members of your household. Let healthy household members care for children and pets, if possible. If you have to care for children or pets, wash your hands often and wear a mask. If possible, stay in your own room, separate from others. Use a different bathroom. Make sure that all people in your household wash their hands well and often. Cough or sneeze into a tissue or your sleeve or elbow. Do not cough or sneeze into your hand or into the air. Wear a cloth face covering or face mask. Where to find more information Centers for Disease Control and Prevention: www.cdc.gov/coronavirus/2019-nco v/index.html World Health Organization: www.who.int/health-topics/rodgers virus Contact a health care provider if: You live in or have traveled to an area where COVID-19 is a risk and you have symptoms of the infection. You have had contact with someone who has COVID-19 and you have symptoms of the infection. Get help right away if: You have trouble breathing. You have pain or pressure in your chest. You have confusion. You have bluish lips and fingernails. You have difficulty waking from sleep. You have symptoms that get worse. These symptoms may represent a serious problem that is an emergency. Do not wait to see if the symptoms will go away. Get medical help right away. Call your local emergency services (911 in the [place] Do not drive yourself to the hospital. Let the emergency medical personnel know if you think you have COVID-19. Summary COVID-19 is a respiratory infection that is caused by a virus. It is also known as coronavirus disease or novel coronavirus. It can cause serious infections, such as pneumonia, acute respiratory distress syndrome, acute respiratory failure, or sepsis. The virus that causes COVID-19 is contagious. This means that it can spread from person to person through droplets from coughs and sneezes. You are more likely to develop a serious illness if you are 65 years of age or older, have a weak immunity, live in a fpc, or have chronic disease. There is no medicine to treat COVID-19. Your health care provider will talk with you about ways to treat your symptoms. Take steps to protect yourself and others from infection. Wash your hands often and disinfect objects and surfaces that are frequently touched every day. Stay away from people who are sick and wear a mask if you are sick. This information is not intended to replace advice given to you by your health care provider. Make sure you discuss any questions you have with your health care provider. Document Released: 04/04/2019 Document Revised: 07/25/2019 Document Reviewed: 04/04/2019 [employer] Patient Education 2020 [employer] 12/31/2020 10:31:03 COVID-19 Frequently Asked Questions COVID-19 Frequently Asked Questions COVID-19 (coronavirus disease) is an infection that is caused by a large family of viruses. Some viruses cause illness in people and others cause illness in animals like camels, cats, and bats. In some cases, the viruses that cause illness in animals can spread to humans. Where did the coronavirus come from? In February 2019, [place] told the World Health Organization (WHO) of several cases of lung disease (human respiratory illness). These cases were linked to an open seafood and livestock market in the city of [facility]. The link to the seafood and livestock market suggests that the virus may have spread from animals to humans. However, since that first outbreak in February, the virus has also been shown to spread from person to person. What is the name of the disease and the virus? Disease name Early on, this disease was called novel coronavirus. This is because scientists determined that the disease was caused by a new (novel) respiratory virus. The World Health Organization (WHO) has now named the disease COVID-19, or coronavirus disease. Virus name The virus that causes the disease is called severe acute respiratory syndrome coronavirus 2 (SARS-CoV-2). More information on disease and virus naming World Health Organization (WHO): www.who.int/emergencies/diseases /aujno-pihpfixfvyp-3743/technica l-guidance/issxxz-rxk-gscixmoyvi s-disease-(covid-2019)-and-the-v subi-kiwi-jeeowg-it Who is at risk for complications from coronavirus disease? Some people may be at higher risk for complications from coronavirus disease. This includes older adults and people who have chronic diseases, such as heart disease, diabetes, and lung disease. If you are at higher risk for complications, take these extra precautions: Avoid close contact with people who are sick or have a fever or cough. Stay at least 3 6 ft (1 2 m) away from them, if possible. Wash your hands often with soap and water for at least 20 seconds. Avoid touching your face, mouth, nose, or eyes. Keep supplies on hand at home, such as food, medicine, and cleaning supplies. Stay home as much as possible. Avoid social gatherings and travel. How does coronavirus disease spread? The virus that causes coronavirus disease spreads easily from person to person (is contagious). There are also cases of community-spread disease. This means the disease has spread to: People who have no known contact with other infected people. People who have not traveled to areas where there are known cases. It appears to spread from one person to another through droplets from coughing or sneezing. Can I get the virus from touching surfaces or objects? There is still a lot that we do not know about the virus that causes coronavirus disease. Scientists are basing a lot of information on what they know about similar viruses, such as: Viruses cannot generally survive on surfaces for long. They need a human body (host) to survive. It is more likely that the virus is spread by close contact with people who are sick (direct contact), such as through: ?Shaking hands or hugging. ?Breathing in respiratory droplets that travel through the air. This can happen when an infected person coughs or sneezes on or near other people. It is less likely that the virus is spread when a person touches a surface or object that has the virus on it (indirect contact). The virus may be able to enter the body if the person touches a surface or object and then touches his or her face, eyes, nose, or mouth. Can a person spread the virus without having symptoms of the disease? It may be possible for the virus to spread before a person has symptoms of the disease, but this is most likely not the main way the virus is spreading. It is more likely for the virus to spread by being in close contact with people who are sick and breathing in the respiratory droplets of a sick person's cough or sneeze. What are the symptoms of coronavirus disease? Symptoms vary from person to person and can range from mild to severe. Symptoms may include: Fever. Cough. Tiredness, weakness, or fatigue. Fast breathing or feeling short of breath. These symptoms can appear anywhere from 2 to 14 days after you have been exposed to the virus. If you develop symptoms, call your health care provider. People with severe symptoms may need hospital care. If I am exposed to the virus, how long does it take before symptoms start? Symptoms of coronavirus disease may appear anywhere from 2 to 14 days after a person has been exposed to the virus. If you develop symptoms, call your health care provider. Should I be tested for this virus? Your health care provider will decide whether to test you based on your symptoms, history of exposure, and your risk factors. How does a health care provider test for this virus? Health care providers will collect samples to send for testing. Samples may include: Taking a swab of fluid from the nose. Taking fluid from the lungs by having you cough up mucus (sputum) into a sterile cup. Taking a blood sample. Taking a stool or urine sample. Is there a treatment or vaccine for this virus? Currently, there is no vaccine to prevent coronavirus disease. Also, there are no medicines like antibiotics or antivirals to treat the virus. A person who becomes sick is given supportive care, which means rest and fluids. A person may also relieve his or her symptoms by using nnbo-hhz-gtvqgjn medicines that treat sneezing, coughing, and runny nose. These are the same medicines that a person takes for the common cold. If you develop symptoms, call your health care provider. People with severe symptoms may need hospital care. What can I do to protect myself and my family from this virus? You can protect yourself and your family by taking the same actions that you would take to prevent the spread of other viruses. Take the following actions: Wash your hands often with soap and water for at least 20 seconds. If soap and water are not available, use alcohol-based hand network lead. Avoid touching your face, mouth, nose, or eyes. Cough or sneeze into a tissue, sleeve, or elbow. Do not cough or sneeze into your hand or the air. ?If you cough or sneeze into a tissue, throw it away immediately and wash your hands. Disinfect objects and surfaces that you frequently touch every day. Avoid close contact with people who are sick or have a fever or cough. Stay at least 3 6 ft (1 2 m) away from them, if possible. Stay home if you are sick, except to get medical care. Call your health care provider before you get medical care. Make sure your vaccines are up to date. Ask your health care provider what vaccines you need. What should I do if I need to travel? Follow travel recommendations from your local health authority, the CDC, and WHO. Travel information and advice Centers for Disease Control and Prevention (CDC): www.cdc.gov/coronavirus/2019-nco v/travelers/index.html World Health Organization (WHO): www.who.int/emergencies/diseases /gjgwq-hmxqdutizqg-4816/travel-a dvice Know the risks and take action to protect your health You are at higher risk of getting coronavirus disease if you are traveling to areas with an outbreak or if you are exposed to travelers from areas with an outbreak. Wash your hands often and practice good hygiene to lower the risk of catching or spreading the virus. What should I do if I am sick? General instructions to stop the spread of infection Wash your hands often with soap and water for at least 20 seconds. If soap and water are not available, use alcohol-based hand network lead. Cough or sneeze into a tissue, sleeve, or elbow. Do not cough or sneeze into your hand or the air. If you cough or sneeze into a tissue, throw it away immediately and wash your hands. Stay home unless you must get medical care. Call your health care provider or local health authority before you get medical care. Avoid public areas. Do not take public transportation, if possible. If you can, wear a mask if you must go out of the house or if you are in close contact with someone who is not sick. Keep your home clean Disinfect objects and surfaces that are frequently touched every day. This may include: ?Counters and tables. ?Doorknobs and light switches. ?Sinks and faucets. ?Electronics such as phones, remote controls, keyboards, computers, and tablets. Wash dishes in hot, soapy water or use a endoscopic technician. Air-dry your dishes. Wash laundry in hot water. Prevent infecting other household members Let healthy household members care for children and pets, if possible. If you have to care for children or pets, wash your hands often and wear a mask. Sleep in a different bedroom or bed, if possible. Do not share personal items, such as razors, toothbrushes, deodorant, marte, brushes, towels, and washcloths. Where to find more information Centers for Disease Control and Prevention (CDC) Information and news updates: www.cdc.gov/coronavirus/2019-nco v World Health Organization (WHO) Information and news updates: www.who.int/emergencies/diseases /tcfvl-hyffsprcjyc-1586 Coronavirus health topic: www.who.int/health-topics/rodgers virus Questions and answers on COVID-19: www.who.int/news-room/q-a-detail /n-z-fsquxhrbdocok Global tracker: [employer] [place] [employer] (AAP) Information for families: www.healthychildren.org/[place]/ health-issues/conditions/chest-l ungs/Pages/7274-Lhhkx-Odkpfhnior s.aspx The coronavirus situation is changing rapidly. Check your local health authority website or the CDC and WHO websites for updates and news. When should I contact a health care provider? Contact your health care provider if you have symptoms of an infection, such as fever or cough, and you: ?Have been near anyone who is known to have coronavirus disease. ?Have come into contact with a person who is suspected to have coronavirus disease. ?Have traveled outside of the country. When should I get emergency medical care? Get help right away by calling your local emergency services (911 in the [place] if you have: ?Trouble breathing. ?Pain or pressure in your chest. ?Confusion. ?Blue-tinged lips and fingernails. ?Difficulty waking from sleep. ?Symptoms that get worse. Let the emergency medical personnel know if you think you have coronavirus disease. Summary A new respiratory virus is spreading from person to person and causing COVID-19 (coronavirus disease). The virus that causes COVID-19 appears to spread easily. It spreads from one person to another through droplets from coughing or sneezing. Older adults and those with chronic diseases are at higher risk of disease. If you are at higher risk for complications, take extra precautions. There is currently no vaccine to prevent coronavirus disease. There are no medicines, such as antibiotics or antivirals, to treat the virus. You can protect yourself and your family by washing your hands often, avoiding touching your face, and covering your coughs and sneezes. This information is not intended to replace advice given to you by your health care provider. Make sure you discuss any questions you have with your health care provider. Document Released: 06/25/2019 Document Revised: 06/25/2019 Document Reviewed: 06/25/2019 Elsevier Patient Education 2020 [employer] Follow Up Care 12/26/2020 15:39:30 With:THEE GIORDANO DO Address: [address] [place] [address] [place] [address]- [phone] When:01/05/2021 14:00:00 Comments:This is your post-hospital follow-up appointment. It is with Jonathan Mondragon NP. [facility] 1. Acute hypoxemic respirato ry failure due to COVID-19, Pneumonia due to COVID- 19 virus 3. Hyponatremia 4. Hypokalemia 5. Type 2 diabetes mellitus, uncontrolled 6. Hypertension 7. MVP (mitral valve prolapse) 8. Generalized anxiety disorder 9. Obesity (BMI 30-39.9) Patient presents to the hospital today with complaints of nonproductive cough, shortness of breath. Onset of symptoms started a week and a half ago, patient tested positive for Covid on 12/17/2020, she is unvaccinated. Chest x-ray pending in the ER, chest x-ray on 12/25/2020 showed mild to moderate bilateral viral pneumonia. Patient was noted to be hypoxic in the emergency department at 81% on room air, she is currently requiring high flow nasal cannula at 50 L 50%. Patient received IV dexamethasone and remdesivir while in the emergency department, will continue remdesivir x5 doses, continue dexamethasone x10 days. Due to increased oxygen requirements, patient does qualify for baricitib. Patient is aware of the emergency use authorization status, verbal material provided. Encouraged use of incentive spirometer for lung expansion, trend COVID labs. D-dimer 342 on 12/26. Hyponatremia with a sodium of 127 likely secondary to above. Will closely monitor, repeat CMP in a.m. Hypokalemia noted on BMP with a potassium of 3.2, will supplement with 40mEq x1. Will obtain magnesium level. Repeat CMP in a.m. History of type 2 diabetes mellitus with most recent A1c 8.3. Continue diabetic protocol, will place on corrective sliding scale and ADA diet. History of hypertension, reviewed blood pressures. Continue home medications. 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 We will continue home metoprolol. Obesity with a BMI of 37 complicating her care. DVT prophylaxis: Subcu Lovenox 1 mg/kg every 12 hours End of life discussion at bedside with patient. In the event of a cardiopulmonary arrest he would like us to proceed with all heroic measures including, but not limited to CPR, defibrillation, and mechanical ventilation (FULL CODE). Discussed with patient severity of COVID diagnosis and high oxygen requirements, patient verbalized understanding and wishes to remain a full code. Case discussed with my collaborating physician, Dr. Beatrice Butler. This dictation was performed using voice recognition software and may include grammatical and/or spelling errors. Future Appointments Appointment Date:01/05/2021 02:00:00 PM Scheduled Provider:JONATHAN MONDRAGON Location:[facility] Appointment Type:PC OV Hospital Follow-Up Appointment Date:03/04/2021 08:00:00 AM Scheduled Provider:THEE GIORDANO DO Location:[facility] Appointment Type:PC OV Appointment Date:12/09/2021 11:00:00 AM Scheduled Provider:REGINA WAITE Location:[facility] Appointment Type:CV OV Future Scheduled Tests Radiology* MRI Knee w/o Contrast Right 08/03/20 * XR Chest 2 Views (PA & Lateral) 12/24/20 [facility] Evaluation + Plan note Future Appointments Appointment Date:03/04/2021 08:00:00 AM Scheduled Provider:THEE GIORDANO DO [facility] Appointment Type:PC OV Appointment Date:12/09/2021 11:00:00 AM Scheduled Provider:REGINA WAITE Location:[facility] Appointment Type:CV OV Future Scheduled Tests Radiology* MRI Knee w/o Contrast Right 08/03/20 * XR Chest 2 Views (PA & Lateral) 12/24/20 [facility] Evaluation + Plan note Future Appointments Appointment Date:09/07/2021 07:30:00 AM Scheduled Provider: Location:[facility] Appointment Type:US Pelvis Non-OB W/Transvaginal Appointment Date:09/10/2021 09:15:00 AM Scheduled Provider:THEE GIORDANO DO Location:[facility] Appointment Type:PC OV Appointment Date:09/14/2021 09:00:00 AM Scheduled Provider:MARII ESTRADA Location: [facility] Appointment Type: OV Appointment Date:12/09/2021 11:00:00 AM Scheduled Provider:REGINA WAITE Location:[facility] Appointment Type:CV OV Future Scheduled Tests Laboratory* Pathology Foreign Trade Teacher Request 08/24/21 Radiology* US Pelvis Non-OB W/Transvaginal 09/07/21 [facility] Evaluation + Plan note Future Appointments Appointment Date:09/10/2021 09:15:00 AM Scheduled Provider:THEE GIORDANO DO Location:[facility] Appointment Type:PC OV Appointment Date:09/14/2021 09:00:00 AM Scheduled Provider:MARII ESTRADA Location: [facility] Appointment Type:WH OV Appointment Date:12/09/2021 11:00:00 AM Scheduled Provider:REGINA WAITE Location:[facility] Appointment Type:CV OV Future Scheduled Tests Laboratory* Pathology Foreign Trade Teacher Request 08/24/21 [facility] Evaluation + Plan note Future Appointments Appointment Date:09/23/2021 08:30:00 AM Scheduled Provider:EL MAGUIRE MD Location:[facility] Appointment Type:WH OV Appointment Date:12/09/2021 11:00:00 AM Scheduled Provider:REGINA WAITE Location:[facility] Appointment Type:CV OV Appointment Date:12/16/2021 09:00:00 AM Scheduled Provider:THEE GIORDANO DO Location:[facility] Appointment Type:PC Wellness Annual Future Scheduled Tests Laboratory* Pathology Foreign Trade Teacher Request 08/24/21 [facility] Evaluation + Plan note Future Appointments Appointment Date:12/09/2021 11:00:00 AM Scheduled Provider:REGINA WAITE Location:[facility] Appointment Type:CV OV Appointment Date:12/16/2021 09:00:00 AM Scheduled Provider:THEE GIORDANO DO Location:[facility] Appointment Type:PC Wellness Annual Future Scheduled Tests Laboratory* Pathology Foreign Trade Teacher Request 08/24/21 [facility] Evaluation + Plan note Future Appointments Appointment Date:09/29/2022 09:15:00 AM Scheduled Provider:THEE GIORDANO DO Location:[facility] Appointment Type:PC OV Appointment Date:12/08/2022 10:00:00 AM Scheduled Provider:EL MAGUIRE MD Location:[facility] Appointment Type:WH OV Appointment Date:12/15/2022 10:00:00 AM Scheduled Provider:REGINA WAITE Location:[facility] Appointment Type:CV OV [facility] Evaluation note* Diagnosis Post-op pain- Primary Other acute postoperative pain S/P laparoscopic hysterectomy Acquired absence of both cervix and uterus Endometrial cancer (HCC) Malignant neoplasm of corpus uteri, except isthmus documented in this encounter [facility] Work Phone: Hospital course Narrative No data available for this section [facility] Discharge instructions No data available for this section [facility] Discharge instructions* Attachments The following attachments cannot be sent through Care Everywhere. * Laparoscopic Hysterectomy: Post-op (Marshallese) documented in this [facility] Work Phone: Progress note No data available for this section [facility] Summary Purpose Family History No Family History Records FoundNo Family History Records FoundNo Family History Records FoundNo Family History Records FoundNo Family History Records Found Advance Directives No Advanced Directives Records FoundLatest Code Status on File Code Status Date Activated Date Inactivated Comments Full Code 12/02/2021 8:38 AM Additional Source Comments INFORMATION SOURCE (unrecogn ized section and content) DATE CREATED AUTHOR AUTHOR'S ORGANIZ ATION 10/01/2019 [facility] DATE CREATED AUTHOR AUTHOR'S ORGANIZ ATION 02/29/2020 [facility] DATE CREATED AUTHOR AUTHOR'S ORGANIZ ATION 12/08/2021 [facility] DATE CREATED AUTHOR AUTHOR'S ORGANIZ ATION 03/21/2023 [facility] ([place]) Care Team (unrecognized sect ion and content) Personnel Name: THEE GIORDANO DO Address: [address] [id number]- Care Team Personnel Name: THEE GIORDANO DO Position: P4 Physician - Primary Care Member Role: Primary Care Physician Address: Address: [address] [place] [address]- Care Team Related Persons Name: CARMEN CRUZ Address: Home [address] [place], [place] [id number] Address: Temporary [address] [place] [phone] Name: SAMUEL CRUZ Address: Home [address] [place], [place] [phone] [place] Name: CHAVO CRUZ Address: Home [address] [place], [place] [id number] Address: Temporary [address] [place], [place] [id number] Care Team (unrecognized sect ion and content) Care Team Personnel Name: THEE GIORDANO DO Position: P4 Physician - Primary Care Med Service: Active Provider Member Role: Primary Care Physician Address: Address: [address] [place] [address]- Care Team Related Persons Name: CARMEN CRUZ Address: Home [address] [place], [place] [id number] Address: Temporary [address] [place] [phone] Name: SAMUEL CRUZ Address: Home [address] [place], [place] [phone] [place] Name: CHAVO CRUZ Address: Home [address] [place], [place] [id number] Address: Temporary [address] [place] [phone] Care Team Personnel Name: THEE GIORDANO DO Position: P4 Physician - Primary Care Med Service: Active Provider Member Role: Primary Care Physician Address: Address: [address] [place] [address]- Care Team Related Persons Name: CARMEN CRUZ Address: Home [address] [place], [place] [id number] Address: Temporary [address] [place] [phone] Name: SAMUEL CRUZ Address: Home [address] [place] [phone] [place] Name: ANTHONY CHAVO Car Address: Home [address] [place], [place] [id number] Address: Temporary [address] [place] [phone] Care Team Personnel Name: THEE GIORDANO DO Position: P4 Physician - Primary Care Med Service: Active Provider Member Role: Primary Care Physician Address: Address: [address] [place] [address] Care Team Related Persons Name: CARMEN CRUZ Address: Home [address] [place] [phone] Address: Temporary [address] [place] [phone] Name: SAMUEL CRUZ Address: Home [address] [place] [phone] Name: CHAVO CRUZ Address: Home [facility] [address] [place], [place] [id number] Address: Temporary [address] [place] [phone] Ordered Prescriptions (unrec ognized section and content) Scheduled Active and Recently Administ ered Medications (unrecognized section and content) Continuous Medication Order 11/30/2021 12/01/2021 12/02/2021 0.9 % sodium chloride infusion IntraVENous, at 50 mL/hr, CONTINUOUS, Starting on Natasha 12/02/21 at 0900, Upon admission to sameday - please start iv if patient does not have iv access., Pre-op (day of surgery) 0900 (Due) lactated ringers infusion IntraVENous, at 50 mL/hr, CONTINUOUS, Starting on Natasha 12/02/21 at 1400, PACU only 1400 (Due) PRN Medication Order 11/30/2021 12/01/2021 12/02/2021 0.9 % sodium chloride bolus 500 mL (5.59 mL/kg), IntraVENous, at 1,000 mL/hr, Administer over 0.5 Hours, PRN, Anti-nausea, Starting on Natasha 12/02/21 at 1330, PACU only 0.9 % sodium chloride infusion IntraVENous, at 5-250 mL/hr, PRN, if patient receiving piggyback infusions and maintenance fluids are not ordered OR KVO fluids to protect IV site / prevent frequent line interruptions/ long duration, Starting on Natasha 12/02/21 at 0838, For piggyback infusion, administer at same rate as piggyback for a total of 25 mL. Enter 25 mL into dose field and piggyback rate into rate field of order. If piggyback is infusing at a rate less than 100 mL/hr, enter 25 mL into dose field and 100 mL/hr into rate field of order. For KVO fluids, enter rate of 20 mL/hr or less into rate field of order., Pre-op (day of surgery) ALPRAZolam (NIRAVAM) dissolvable tablet 0.25 mg 0.25 mg, Oral, PRN, Starting on Natasha 12/02/21 at 0838, Until Discontinued, Anxiety, Pre-op (day of surgery) dextrose 5 % solution 100 mL/hr, IntraVENous, PRN, Low blood sugar, Starting on Natasha 12/02/21 at 0838, Start infusion following administration of dextrose 50% or glucagon., Pre-op (day of surgery) dextrose 50 % IV solution 12.5 g, IntraVENous, PRN, Starting on Natasha 12/02/21 at 0838, Until Discontinued, Low blood sugar, Blood glucose less than 70 mg/dL and patient NOT ALERT or NPO., If patient does not respond within 5 minutes, repeat dose x1. Start D5W at 100 mL/hour until ordering provider can be reached. Repeat blood glucose in 15 minutes. If blood glucose is less than 70 mg/dL, repeat treatment and recheck blood glucose in 15 minutes x2. If using Glucostabilizer, dose as instructed per system., Pre-op (day of surgery) diphenhydrAMINE (BENADRYL) injection 12.5 mg 12.5 mg, IntraVENous, ONCE PRN, 1 dose, Starting on Natasha 12/02/21 at 1330, Until Natasha 12/02/21 at 2359, Itching, for use Sameday and, PACU only fentaNYL (SUBLIMAZE) injection 25 mcg 25 mcg, IntraVENous, EVERY 5 MIN PRN, 3 doses, Starting on Natasha 12/02/21 at 1330, Until Discontinued, Pain Moderate (4-6), Phase I and Phase II- Initial therapy for moderate pain (4-6). Restricted to a 90 minute time frame starting when the patient can verbally state their pain score. If after 2 doses the pain score does not decrease by more than one point, then call the provider. If oral meds are utilized, do not return to initial therapy medications. SDS and, PACU only fentaNYL (SUBLIMAZE) injection 50 mcg 50 mcg, IntraVENous, EVERY 5 MIN PRN, 3 doses, Starting on Natasha 12/02/21 at 1330, Until Discontinued, Pain Severe (7-10), Phase I or Phase II- Initial therapy for severe pain (7-10). Restricted to a 90 minute time frame starting when the patient can verbally state their pain score. If after 2 doses the pain score does not decrease by more than one point, then call the provider. If oral meds are utilized, do not return to initial therapy medications. SDS and, PACU only 1422 (Given - Provid er: Aries Holder RN) glucagon (rDNA) injection 1 mg 1 mg, IntraMUSCular, PRN, Starting on Natasha 12/02/21 at 0838, Until Discontinued, Low blood sugar, Blood glucose less than 70 mg/dL and patient NOT ALERT or NPO and does not have IV access., After administration, attempt intravenous access and start D5W at 100 mL/hr. Repeat blood glucose in 15 minutes x2 and notify provider., Pre-op (day of surgery) Glucose (TRUEPLUS) oral gel 15 g 15 g, Oral, PRN, Starting on Natasha 12/02/21 at 0838, Until Discontinued, Low blood sugar, If blood glucose less than 50 mg/dL and patient ALERT and TOLERATING PO, give 2 tubes glucose gel. If blood glucose less than 70 mg/dL and patient ALERT and TOLERATING PO, give 1 tube glucose gel. Repeat blood glucose in 15 minutes. If blood glucose is less than 70 mg/dL, repeat treatment and recheck blood glucose in 15 minutes x2 and notify provider., Pre-op (day of surgery) hydrALAZINE (APRESOLINE) injection 5 mg(Linked Group 1) 5 mg, IntraVENous, EVERY 10 MIN PRN, 2 doses, Starting on Natasha 12/02/21 at 1330, Until Discontinued, High Blood Pressure, PRN for SBP > 160 for 2 consecutive measurements, and if one of the following conditions is met: 1) If IV labetolol is ineffective. 2) If HR is under 60. 3) If patient has heart block, COPD or asthma. If both labetalol and hydralazine ineffective, notify anesthesiologist. for use Sameday and, PACU only insulin lispro (HUMALOG) injection vial 0-12 Units 0-12 Units, SubCUTAneous, PRN, 3 doses, Starting on Natasha 12/02/21 at 0838, Until Discontinued, Surgery patient, Corrective Low Dose Algorithm Glucose: Dose: 70-180 No Insulin 181-240 4 Unit 241-300 6 Units 301-350 8 Units 351-400 10 Units Over 400 12 Units and notify physician, Pre-op (day of surgery) 09 (Given - Provid er: Christa Adams RN)1351 (Given - Provider: Aries Holder RN) labetalol (NORMODYNE;TRANDATE) injection 5 mg(Linked Group 1) 5 mg, IntraVENous, EVERY 10 MIN PRN, 2 doses, Starting on Natasha 12/02/21 at 1330, Until Discontinued, High Blood Pressure, PRN for SBP >160 for 2 consecutive measurements, if HR is 60 or greater. If beta abel is contraindicated (HR less than 60, heart block, COPD or asthma) use hydralazine IV order. for use Sameday and, PACU only lidocaine 1 % injection 1 mL 1 mL, IntraDERmal, ONCE PRN, 1 dose, Starting on Natasha 12/02/21 at 0838, Until Natasha 12/02/21 at 2359, IV start, Pre-op (day of surgery) LORazepam (ATIVAN) injection 0.5 mg 0.5 mg, IntraVENous, ONCE PRN, 1 dose, Starting on Natasha 12/02/21 at 1330, Until Natasha 12/02/21 at 2359, for anxiety or muscle spasm., PACU only meperidine (DEMEROL) injection 12.5 mg 12.5 mg, IntraVENous, EVERY 5 MIN PRN, 4 doses, Starting on Natasha 12/02/21 at 1330, Until Discontinued, Shivering, , May give every 5 minutes to max of 50mg. for use Sameday and, PACU only ondansetron (ZOFRAN) injection 4 mg 4 mg, IntraVENous, ONCE PRN, 1 dose, Starting on Natasha 12/02/21 at 1330, Until Natasha 12/02/21 at 2359, Nausea, Initial antiemetic therapy. For use sameday and, PACU only oxyCODONE (ROXICODONE) immediate release tablet 10 mg (COMPLETED) 10 mg, Oral, PRN, 1 dose, Starting on Natasha 12/02/21 at 1330, Until Natasha 12/02/21 at 2359, Pain Severe (7-10), PHASE II, PACU only 1534 (Given - Provid er: Loreta Mahoney RN) sodium chloride flush 0.9 % injection 5-40 mL 5-40 mL, IntraVENous, PRN, Starting on Natasha 12/02/21 at 0838, Until Discontinued, Line Care, After every IV line use, For Line Patency: Peripheral IV = 5 mL; Midline or Central Line = 10 mL/lumen. If following IV push medication, administer flush at same rate as the IV push. Flush volume is determined by type of infusion therapy being given. For non-viscous solutions use: Peripheral IV = 5 mL Midline or Central Line = 10 mL/lumen For viscous solutions (i.e. blood components, parenteral nutrition, contrast media, or after obtaining blood sample) use: Peripheral IV = 10 mL Midline or Central Line = 20 mL/lumen, Pre-op (day of surgery) sodium chloride flush 0.9 % injection 5-40 mL 5-40 mL, IntraVENous, PRN, Starting on Natasha 12/02/21 at 1330, Until Discontinued, Line Care, After every IV line use, For Line Patency: Peripheral IV = 5 mL; Midline or Central Line = 10 mL/lumen. If following IV push medication, administer flush at same rate as the IV push. Flush volume is determined by type of infusion therapy being given. For non-viscous solutions use: Peripheral IV = 5 mL Midline or Central Line = 10 mL/lumen For viscous solutions (i.e. blood components, parenteral nutrition, contrast media, or after obtaining blood sample) use: Peripheral IV = 10 mL Midline or Central Line = 20 mL/lumen, PACU only Linked Groups Order Group 1: labetalol (NORMODYNE;TRANDATE) injection 5 mgJump to med 5 mg, IntraVENous, EVERY 10 MIN PRN, 2 doses, Starting on Natasha 12/02/21 at 1330, Until Discontinued, High Blood Pressure
PRN for SBP >160 for 2 consecutive measurements, if HR is 60 or greater. If beta abel is contraindicated (HR less than 60, heart block, COPD or asthma) use hydralazine IV order. for use Sameday and
PACU only Or hydrALAZINE (APRESOLINE) injection 5 mgJump to med 5 mg, IntraVENous, EVERY 10 MIN PRN, 2 doses, Starting on Natasha 12/02/21 at 1330, Until Discontinued, High Blood Pressure
PRN for SBP > 160 for 2 consecutive measurements, and if one of the following conditions is met: 1) If IV labetolol is ineffective. 2) If HR is under 60. 3) If patient has heart block, COPD or asthma. If both labetalol and hydralazine ineffective, notify anesthesiologist. for use Sameday and
PACU only FOR RECORDS PERTAINING TO PATIENTS WHO ARE OR HAVE BEEN ENROLLED IN A CHEMICAL DEPENDENCY/SUBSTANCEABUSE PROGRAM, SOME INFORMATION MAY BE OMITTED. This clinical summary was aggregated from multiple sources. Caution should be exercised in using it in the provision of clinical care. This summary normalizes information from multiple sources, and as a consequence, information in this document may materially change the coding, format and clinical context of patient data. In addition, data may be omitted in some cases. CLINICAL DECISIONS SHOULD BE BASED ON THE PRIMARY CLINICAL RECORDS. [employer]. provides no warranty or guarantee of the accuracy or completeness of information in this document.
[2023-05-26 16:10] LABS: Endomysial Antibody IgA Negative (Negative); Immunoglobulin A 335 mg/dL (87-352); t-Transglutaminase IgA <2 U/mL (0-3)
== END | disposition home or self-care (01) ==
PROVIDERS: PCP Family Medicine; Referring Provider Internal Medicine Gastroenterology; Visit Provider Internal Medicine Gastroenterology
DX: R10.9 Unspecified abdominal pain (principal)
CPT/HCPCS: 36415; 82784; 83516; 86140; 86255

== ENCOUNTER → 2023-07-11 | Outpatient (CLI) | payer OTHER, SELFPAY ==
[2023-07-13 15:09] LABS: Endomysial Antibody IgA Negative (Negative); Immunoglobulin A 325 mg/dL (87-352); t-Transglutaminase IgA <2 U/mL (0-3)
== END | disposition home or self-care (01) ==
LOC: MTLAB 15:21
PROVIDERS: PCP Family Medicine; Referring Provider Internal Medicine Gastroenterology; Visit Provider Internal Medicine Gastroenterology
DX: R19.7 Diarrhea, unspecified (principal)
CPT/HCPCS: 36415; 82784; 83516; 86140; 86255